=== PATIENT | male | born 1970 | race Caucasian/White ===

== ENCOUNTER 2017-12-10 07:50 | Day surgery (SDC) | payer MEDICAID ==
[~2017-12-10] VITALS: Ht 177.8 cm; Wt 63.8 kg
[2017-12-10 08:04] VITALS: BP 121/83
[2017-12-10] MEDS ORDERED: albumin (human) 25% 100 ML IV solution IV PRN (08:05)
[2017-12-10] MEDS ORDERED: normal saline 1000ml 1,000 ML IV PRN (08:05)
[2017-12-10] MEDS ORDERED: FENT1PAT7 (08:10)
[2017-12-10] MEDS ORDERED: PHENERGAN PO (08:10)
[2017-12-10] MEDS ORDERED: CARI250T PO (08:11)
[2017-12-10] MEDS ORDERED: LIDOcaine 1%/PF 5ML 10 MG/ML VIAL SQ PRN (08:15)
[2017-12-10 08:30] VITALS: BP 124/83
[2017-12-10 08:47] VITALS: BP 124/83
[2017-12-10 09:04] VITALS: BP 121/81
== END 2017-12-10 09:15 | disposition home or self-care (01) ==
LOC: SSTAY O 07:50
PROVIDERS: ATTEND Radiology Diagnostic Radiology
DX: R18.8 Other ascites (principal); Z85.89 Personal history of malignant neoplasm of other organs and systems; Z90.49 Acquired absence of other specified parts of digestive tract; Z88.5 Allergy status to narcotic agent; Z98.890 Other specified postprocedural states; Z79.899 Other long term (current) drug therapy
CPT/HCPCS: 49083; A6257; J2001; J7030

== ENCOUNTER 2017-12-12 07:05 | Day surgery (SDC) | payer MEDICAID ==
[~2017-12-12] VITALS: Ht 177.8 cm; Wt 61.8 kg
[~2017-12-12 07:05] MED LIST: CARI250T PO; FENT1PAT7; PHENERGAN PO
[2017-12-12] MEDS ORDERED: normal saline 1000ml 1,000 ML IV SCH ×2 (07:20→08:00)
[2017-12-12 08:00] VITALS: BP 137/94
[2017-12-12 08:23] LABS: BASOPHILS % (AUTO) 0.1 % (0-1); EOSINOPHILS % (AUTO) 0.1 % (0-6); HEMATOCRIT 45.6 % (42.0-52.0); HEMOGLOBIN 15.1 g/dl (14.0-17.9); LYMPHOCYTES # (AUTO) 0.7 X10'3 (1.1-4.8); LYMPHOCYTES % (AUTO) 8.1 % (21-51); MEAN CORPUSCULAR HGB CONC 33.2 % (33.0-36.5); MEAN CORPUSCULAR VOLUME 84.2 FL (78-98); MEAN PLATELET VOLUME 7.8 FL (7.4-10.4); MONOCYTES # (AUTO) 0.4 X10'3 (0-0.9); NEUTROPHILS # (AUTO) 7.6 X10'3 (1.8-7.7); NEUTROPHILS % (AUTO) 86.7 % (42-75); PLATELET COUNT 470 X10'3 (140-440); RED BLOOD COUNT 5.41 X10'6 (4.70-6.10); RED CELL DISTRIBUTION WIDTH 14.1 % (11.5-14.5); WHITE BLOOD COUNT 8.7 X10'3 (4.5-11.0)
[2017-12-12] MEDS ORDERED: midazolam 2 mg/2 ml injection ONE (09:20)
[2017-12-12] MEDS ORDERED: fentaNYL/PF 50MCG/1 ML 2ML syringe ONE (09:20)
[2017-12-12] MEDS ORDERED: ondansetron/PF 4mg/2ml inj ONE (09:20)
[2017-12-12] MEDS ORDERED: LIDOcaine 1%/PF 5ML 10 MG/ML VIAL ONE (09:20)
[2017-12-12] MEDS ORDERED: heparin sodium, porcine/PF 100unit/ml 5ML syringe ICATH ONE (09:25)
[2017-12-12] MEDS ORDERED: ondansetron/PF 4mg/2ml inj IV ONE (09:25)
[2017-12-12] MEDS ORDERED: fentaNYL/PF 50MCG/1 ML 2ML syringe IV PRN (09:25)
[2017-12-12] MEDS ORDERED: midazolam 2 mg/2 ml injection IV PRN (09:25)
[2017-12-12] MEDS ORDERED: heparin sodium, porcine/PF 100unit/ml 5ML syringe ONE (09:34)
[2017-12-12 10:25] VITALS: BP 122/83
[2017-12-12 10:35] VITALS: BP 143/92
[2017-12-12 10:50] VITALS: BP 124/82
[2017-12-12 11:04] VITALS: BP 127/85
== END 2017-12-12 11:34 | disposition home or self-care (01) ==
LOC: SSTAY O 07:05
PROVIDERS: ATTEND Radiology Diagnostic Radiology
DX: C78.6 Secondary malignant neoplasm of retroperitoneum and peritoneum (principal); Z85.07 Personal history of malignant neoplasm of pancreas; Z88.5 Allergy status to narcotic agent; Z98.890 Other specified postprocedural states; Z79.899 Other long term (current) drug therapy
CPT/HCPCS: 36415; 36561; 76937; 77001; 85025; 99152; 99153; A6219; C1788; C1894; J1642; J2001; J2250; J2405; J3010; J7030; A4620

== ENCOUNTER 2017-12-24 12:10 | Emergency (ER) | payer MEDICAID ==
[~2017-12-24] VITALS: Ht 177.8 cm; Wt 61.0 kg
[2017-12-24] MEDS ORDERED: normal saline 1000ML IV soln IVB ONE (12:50)
[2017-12-24] MEDS ORDERED: ondansetron/PF 4mg/2ml inj IV ONE (12:50)
[2017-12-24 13:01] LABS: BASOPHILS # (AUTO) 0.1 X10'3 (0-0.2); BASOPHILS % (AUTO) 1.1 % (0-1); EOSINOPHILS # (AUTO) 0.1 X10'3 (0-0.9); EOSINOPHILS % (AUTO) 0.8 % (0-6); HEMATOCRIT 44.7 % (42.0-52.0); HEMOGLOBIN 14.2 g/dl (14.0-17.9); LYMPHOCYTES # (AUTO) 0.7 X10'3 (1.1-4.8); LYMPHOCYTES % (AUTO) 6.3 % (21-51); MEAN CORPUSCULAR HEMOGLOBIN 27.2 PG (27.0-31.0); MEAN CORPUSCULAR HGB CONC 31.7 % (33.0-36.5); MEAN CORPUSCULAR VOLUME 85.7 FL (78-98); MONOCYTES # (AUTO) 0.3 X10'3 (0-0.9); NEUTROPHILS # (AUTO) 9.4 X10'3 (1.8-7.7); NEUTROPHILS % (AUTO) 88.8 % (42-75); PLATELET COUNT 537 X10'3 (140-440); RED BLOOD COUNT 5.21 X10'6 (4.70-6.10); RED CELL DISTRIBUTION WIDTH 14.3 % (11.5-14.5); WHITE BLOOD COUNT 10.6 X10'3 (4.5-11.0)
[2017-12-24 13:15] LABS: ALANINE AMINOTRANSFERASE 69 U/L (12-78); ALBUMIN 2.7 G/DL (3.4-5.0); ALBUMIN/GLOBULIN RATIO 0.6 (1.1-1.5); ALKALINE PHOSPHATASE 448 IU/L (46-116); ANION GAP 5 (8-16); ASPARTATE AMINO TRANSFERASE 59 U/L (10-37); BILIRUBIN,TOTAL 0.6 MG/DL (0.1-1.0); BLOOD UREA NITROGEN 11 MG/DL (7-18); BUN/CREATININE RATIO 12.1 (5.4-32.0); CALCIUM 9.5 MG/DL (8.5-10.1); CHLORIDE 101 MMOL/L (99-107); CREATININE 0.91 MG/DL (0.60-1.10); GLUCOSE 123 MG/DL (70-104); LIPASE 518 U/L (73-393); POTASSIUM 3.7 MMOL/L (3.5-5.1); SODIUM 139 MMOL/L (135-145); TOTAL CARBON DIOXIDE 32.9 MMOL/L (24-32); TOTAL PROTEIN 7.5 G/DL (6.4-8.2); eGFR 89 ML/MIN
[2017-12-24] MEDS ORDERED: famotidine/PF 10 mg/ml inj IV ONE (13:50)
[2017-12-24 14:23] LABS: CLARITY,URINE CLOUDY (Clear); COLOR,URINE YELLOW (Yellow); GLUCOSE, URINE NEGATIVE (Neg); KETONES,URINE TRACE mg/dl (Neg); LEUKOCYTE ESTERASE ,URINE NEGATIVE (Neg); NITRITES, URINE NEGATIVE (Neg); OCCULT BLOOD,URINE NEGATIVE (Neg); PH,URINE 8.5 (4.8-8.0); PROTEIN,URINE NEGATIVE (Neg); UA COLLECTION TYPE CLN CATCH MIDSTREAM
[2017-12-24] MEDS ORDERED: LIDOcaine 1.5% w/epinephrine 1:200,000 5ml ampul IJ ONE (14:25)
[2017-12-24 14:39] LABS: BACTERIA,URINE 1+ /HPF (Neg); SQUAMOUS EPITHELIAL CELL,UR FEW /LPF (FEW)
[2017-12-24 14:41] LABS: AMORPHOUS PHOSPHATES 2+; RBC,URINE 0-2 /HPF (0-2); WBC,URINE 0-4 /HPF (0-4)
[2017-12-24] MEDS ORDERED: PHE25R PR (15:11)
[2017-12-24 15:22] VITALS: BP 133/88
== END 2017-12-24 15:24 | disposition home or self-care (01) ==
LOC: ER 12:11
DX: R18.8 Other ascites (principal); R11.2 Nausea with vomiting, unspecified; Z88.5 Allergy status to narcotic agent; Z79.899 Other long term (current) drug therapy
CPT/HCPCS: 36415; 49083; 74176; 80053; 81001; 83690; 85025; 96361; 96374; 96375; 99285; J2405; J3490; J7030